=== PATIENT | female | born 1955 ===

== ENCOUNTER 2018-07-21 09:24 | Outpatient (CLI) | payer OTHER ==
[~2018-07-21] VITALS: Ht 152.4 cm; Wt 90.7 kg
== END 2018-07-21 09:40 | disposition home or self-care (01) ==
LOC: OFIC 805 09:24
DX: R42 Dizziness and giddiness (principal); H81.12 Benign paroxysmal vertigo, left ear

== ENCOUNTER 2020-12-24 05:56 | Day surgery (SDC) | payer OTHER ==
[~2020-12-24 05:56] MED LIST: AVALIDE 300-121 EACH PO; CRESTOR20 MG PO; DICLOFEN PO; FORTAMET500 MG PO; GABAPENT PO; PLAQUENIL PO; PROTONIX40 MG PO; TOPROL XL50 M1 PO
[2020-12-24] MEDS ORDERED: PERCOCET 5-3251 EACH PO (09:27)
== END 2020-12-24 12:00 | disposition home or self-care (01) ==
LOC: CIR.AMB 05:56
PROVIDERS: ATTEND Surgery
DX: D34 Benign neoplasm of thyroid gland (principal); Z20.822 Contact with and (suspected) exposure to COVID-19